=== PATIENT | female | born 1955 | race Caucasian/White ===

== ENCOUNTER → 2018-03-02 11:27 | Outpatient (CLI) | payer OTHER, SELFPAY ==
[2018-03-02 12:13] LABS: Add Manual Diff / Slide Review NO; Basophils Percent Auto 0.8 % (0-2); Eosinophils Percent Auto 5.6 % (2-4); Hematocrit 37.2 % (36-46); Hemoglobin 12.6 g/dL (12.0-16.0); Lymphocytes Percent Auto 28.8 % (25-40); Mean Corpuscular HGB Conc 33.9 % (30-36); Mean Corpuscular Hemoglobin 29.4 PG (26-34); Mean Corpuscular Volume 86.6 fL (80-100); Monocytes Percent Auto 9.6 % (3-14); Neutrophils Absolute Auto 2600 /uL (3000-5900); Neutrophils Percent Auto 55.2 % (50-75); Platelet Count 253 X10^3/uL (150-400); Red Cell Distribution Width 13.5 % (11.6-14.8); White Blood Cell Count 4.7 X10^3/uL (4.5-11.0)
[2018-03-02 12:29] LABS: Alanine Aminotransferase 53 IU/L (9-52); Albumin 4.5 g/dL (3.5-5.0); Albumin Globulin Ratio 1.9 (1.0-2.8); Alkaline Phosphatase 62 U/L (38-126); Aspartate Aminotransferase 44 IU/L (14-36); BUN Creatinine Ratio 14.3 (6-22); Bilirubin Total 0.4 mg/dL (0.2-1.3); Blood Urea Nitrogen 10 mg/dL (7-17); Calcium 9.6 mg/dL (8.4-10.2); Carbon Dioxide 25 mmol/L (22-32); Chloride 106 mmol/L (98-107); Cholesterol 204 mg/dL (140-199); Estimated Glomerular Filt Rate > 60.0 mL/min (>60); Globulin 2.4 g/dL (1.7-4.1); Glucose 93 mg/dL (80-110); HEMOLYSIS < 15 (0-50); Potassium 4.2 mmol/L (3.4-5.1); Sodium 142 mmol/L (137-145); Total Protein 6.9 g/dL (6.3-8.2); Triglycerides 70 mg/dL (35-150)
[2018-03-02 12:36] LABS: HDL Cholesterol 124 mg/dL (40-60); LDL Cholesterol Calculated 66 mg/dL (<100)
[2018-03-02 13:15] LABS: HIV 1 and 2 Antibody NEGATIVE (NEGATIVE); Hep C Virus Ab w/Reflex Quant NEGATIVE s/c (NEGATIVE)
[2018-03-02 16:35] LABS: Urine N gonorrhoeae NOT DETECTED
[2018-03-02 16:52] LABS: Urine Chlamydia NOT DETECTED
[2018-03-05 17:44] LABS: Fecal Immunochemical Test NOT DETECTED
== END ==
PROVIDERS: Visit Provider Family Medicine
DX: Z00.00 Encounter for general adult medical examination without abnormal findings (principal); Z20.2 Contact with and (suspected) exposure to infections with a predominantly sexual mode of transmission; Z12.11 Encounter for screening for malignant neoplasm of colon
CPT/HCPCS: 36415; 80053; 80061; 82274; 84443; 85025; 86703; 86803; 87491; 87591

== ENCOUNTER → 2018-03-27 08:37 | Outpatient (CLI) | payer OTHER, SELFPAY ==
[2018-03-27 11:14] LABS: Hemoglobin A1C% w Est Avg Glu 5.3 % (4.0-6.0)
[2018-03-27 11:39] LABS: Free T3, Triiodothyronine Free 3.98 pg/mL (2.77-5.27); Free T4, Direct Thyroxine 1.17 ng/dL (0.78-2.19)
[2018-03-27 11:41] LABS: Vitamin D 25 Hydroxy (D3) 67.6 ng/mL (30.0-100.0)
[2018-03-27 11:52] LABS: Thyroid Stimulating Hormone 0.66 uIU/mL (0.47-4.68)
[2018-03-27 12:42] LABS: C-Reactive Protein Quant 0.6 mg/dL (<1.0)
[2018-03-27 14:39] LABS: Vitamin B12 605 pg/mL (239-931)
[2018-03-28 16:30] LABS: Estradiol 101 pg/mL
[2018-03-28 17:38] LABS: Progesterone 4.3 ng/mL
[2018-03-28 17:52] LABS: Dehydroepiandrosterone Sulfate 34 mcg/dL (12-133)
[2018-03-29 12:22] LABS: Homocysteine 10.5 umol/L (< 10.4)
[2018-03-30 07:13] LABS: Z- Score (Female) -1.2 SD (-2.0 - +2.0)
[2018-04-01 08:12] LABS: Magnesium, RBC 5.5 mg/dL (4.0-6.4)
== END ==
PROVIDERS: PCP Family Medicine
DX: Z13.1 Encounter for screening for diabetes mellitus (principal)
CPT/HCPCS: 36415; 82306; 82542; 82607; 82627; 82670; 83036; 83090; 83735; 84144; 84305; 84402; 84403; 84439; 84443; 84481; 86140

== ENCOUNTER → 2018-05-01 14:14 | Outpatient (CLI) | payer OTHER, SELFPAY | PROVIDERS: PCP Family Medicine; Visit Provider Physician Assistant | DX: R39.89 Other symptoms and signs involving the genitourinary system (principal) | CPT/HCPCS: 87077; 87086; 87186 ==

== ENCOUNTER → 2018-05-09 11:11 | Outpatient (CLI) | payer OTHER, SELFPAY ==
--- NOTE | 2018-05-09 11:18 | DI.RAD.S_ITS ---
PROCEDURE: XR RIBS BI MIN 4V W CXR1V INDICATIONS: rib pain after fall TECHNIQUE: 2 views of the right ribs and 2 view of the left ribs were acquired, along with a single view chest. COMPARISON: None. FINDINGS: Surgical changes and devices: None. Bones and chest wall: No fractures or dislocations. No suspicious bony lesions. Overlying soft tissues appear unremarkable. Lungs and pleura: No pleural effusions or pneumothorax. Lungs appear clear. Mediastinum: Mediastinal contours appear normal. Heart size is normal. IMPRESSION: No displaced rib fractures. Dictated by: Lillian Roberts M.D. on 05/09/2018 at 17:22 Approved by: Lillian Roberts M.D. on 05/09/2018 at 17:24
== END ==
PROVIDERS: PCP Family Medicine; Visit Provider Family Medicine
DX: R07.81 Pleurodynia (principal)
CPT/HCPCS: 71111

== ENCOUNTER → 2018-07-03 11:09 | Outpatient (CLI) | payer OTHER, SELFPAY | PROVIDERS: PCP Family Medicine; Visit Provider Family Medicine | DX: R30.0 Dysuria (principal) | CPT/HCPCS: 87077; 87086; 87186 ==

== ENCOUNTER → 2018-09-06 10:40 | Outpatient (CLI) | payer OTHER, SELFPAY ==
[2018-09-06 12:11] LABS: C-Reactive Protein Quant < 0.5 mg/dL (<1.0)
[2018-09-06 12:26] LABS: Free T3, Triiodothyronine Free 3.58 pg/mL (2.77-5.27); Free T4, Direct Thyroxine 1.13 ng/dL (0.78-2.19); Progesterone, Total 3.03 ng/mL; Vitamin D 25 Hydroxy (D3) 51.4 ng/mL (30.0-100.0)
[2018-09-06 12:40] LABS: Thyroid Stimulating Hormone 0.65 uIU/mL (0.47-4.68)
[2018-09-06 12:42] LABS: Estradiol, Total 91.7 pg/mL
[2018-09-06 12:58] LABS: Vitamin B12 600 pg/mL (239-931)
[2018-09-08 13:35] LABS: Z- Score (Female) -1.3 SD (-2.0 - +2.0)
[2018-09-08 14:04] LABS: Dehydroepiandrosterone Sulfate 40 mcg/dL (12-133)
[2018-09-08 19:45] LABS: Homocysteine 6.1 umol/L (< 10.4)
[2018-09-09 13:37] LABS: Testosterone, Free 0.09 ng/dL
== END ==
PROVIDERS: PCP Family Medicine
DX: N95.9 Unspecified menopausal and perimenopausal disorder (principal); R53.83 Other fatigue; E55.9 Vitamin D deficiency, unspecified; Z13.220 Encounter for screening for lipoid disorders
CPT/HCPCS: 36415; 82306; 82607; 82627; 82670; 83090; 84144; 84305; 84402; 84439; 84443; 84481; 86140

== ENCOUNTER → 2019-02-08 17:42 | Outpatient (CLI) | payer OTHER, SELFPAY ==
[2019-02-08 18:06] LABS: Add Manual Diff / Slide Review NO; Basophils Absolute Auto 100 /uL (0-100); Eosinophils Absolute Auto 400 /uL (0-450); Hematocrit 37.7 % (36-46); Hemoglobin 12.8 g/dL (12.0-16.0); Lymphocytes Absolute Auto 2200 /uL (1100-4500); Lymphocytes Percent Auto 36.4 % (25-40); Mean Corpuscular HGB Conc 33.9 % (30-36); Mean Corpuscular Hemoglobin 29.4 PG (26-34); Mean Corpuscular Volume 86.8 fL (80-100); Monocytes Absolute Auto 600 /uL (0-900); Monocytes Percent Auto 9.7 % (3-14); Neutrophils Absolute Auto 2900 /uL (1500-7000); Neutrophils Percent Auto 46.9 % (50-75); Platelet Count 258 X10^3/uL (150-400); Red Blood Cell Count 4.34 X10^6/uL (4.0-5.2); Red Cell Distribution Width 13.3 % (11.6-14.8); White Blood Cell Count 6.1 X10^3/uL (4.5-11.0)
[2019-02-08 18:29] LABS: Appearance Urine UA CLEAR; Bilirubin Urine UA NEGATIVE (NEGATIVE); Color Urine UA YELLOW; Glucose Urine UA NEGATIVE (Negative); Ketones Urine UA NEGATIVE (NEGATIVE); Leukocyte Esterase Urine UA NEGATIVE (NEGATIVE); Nitrite Urine UA NEGATIVE (Negative); Occult Blood Urine UA TRACE-INTACT (Negative); Protein Urine UA NEGATIVE (Negative); Specific Gravity Urine UA <=1.005 (1.000-1.035); Urobilinogen Urine UA 0.2 E.U./dL (0.2)
[2019-02-08 18:31] LABS: Alanine Aminotransferase 22 IU/L (9-52); Albumin 4.5 g/dL (3.5-5.0); Albumin Globulin Ratio 1.6 (1.0-2.8); Alkaline Phosphatase 73 U/L (38-126); Aspartate Aminotransferase 29 IU/L (15-46); Bilirubin Total 0.4 mg/dL (0.2-1.3); Blood Urea Nitrogen 14 mg/dL (7-17); Calcium 10.3 mg/dL (8.4-10.2); Carbon Dioxide 28 mmol/L (22-32); Chloride 101 mmol/L (98-107); Cholesterol 245 mg/dL (140-199); Estimated Glomerular Filt Rate > 60.0 mL/min (>60); Globulin 2.9 g/dL (1.7-4.1); Glucose 89 mg/dL (80-110); HEMOLYSIS < 15 (0-50); Potassium 4.1 mmol/L (3.4-5.1); Sodium 137 mmol/L (137-145); Total Protein 7.4 g/dL (6.3-8.2); Triglycerides 114 mg/dL (35-150)
[2019-02-08 18:40] LABS: HDL Cholesterol 122 mg/dL (40-60); LDL Cholesterol Calculated 100 mg/dL (<100)
== END ==
PROVIDERS: PCP Family Medicine; Visit Provider Family Medicine
DX: Z00.00 Encounter for general adult medical examination without abnormal findings (principal); Z79.890 Hormone replacement therapy
CPT/HCPCS: 36415; 80053; 80061; 81003; 85025

== ENCOUNTER → 2019-04-25 15:05 | Outpatient (CLI) | payer OTHER, SELFPAY ==
--- NOTE | 2019-04-25 15:07 | DI.US.S_ITS ---
PROCEDURE: US PELVIC COMPLETE INDICATIONS: ANNUAL VISIT WITH ABN FINDINGS TECHNIQUE: Real-time scanning was performed of the pelvic organs, with image documentation. Additional endovaginal scanning was necessary due to incomplete visualization of the adnexal and endometrial structures by transabdominal scanning. COMPARISON: None. FINDINGS: Transabdominal scanning: Limited scanning through the kidneys shows no hydronephrosis. No pathologic free abdominal or pelvic fluid. Endovaginal scanning: Uterus: Uterus is normal in size at 8.7 x 4.9 x 5.5 cm. The endometrium is diffusely heterogeneous and measures 3-4 mm in combined thickness. Ovaries: Not seen sonographically IMPRESSION: Ovaries not well seen sonographically otherwise unremarkable examination Dictated by: Efraín Corbin M.D. on 04/25/2019 at 17:18 Approved by: Efraín Corbin M.D. on 04/25/2019 at 17:19
--- NOTE | 2019-04-25 15:21 | DI.MG.S_ITS ---
BILATERAL DIGITAL SCREENING MAMMOGRAM 3D/2D WITH CAD WITH AUGMENTATION: 04/25/2019 CLINICAL: Patient presents for routine screening. S/P bilateral augmentation. Comparison is made to exam dated: 02/26/2015 mammogram - [facility]. The tissue of both breasts is heterogeneously dense. This may lower the sensitivity of mammography. Current study was also evaluated with a Computer Aided Detection (CAD) system. Bilateral breast implants are intact. No significant masses, calcifications, or other findings are seen in either breast. There has been no significant interval change. IMPRESSION: NEGATIVE There is no mammographic evidence of malignancy. A 1 year screening mammogram is recommended. This exam was interpreted at Station ID: [id number]. NOTE: For mammograms, a report in lay terms will be sent to the patient. Approximately 15% of breast malignancies will not be visualized mammographically. In the management of a palpable breast mass, a negative mammogram must not discourage biopsy of a clinically suspicious lesion. Electronically Signed By: Rae strickland/cristina:04/25/2019 17:00:58 letter sent: Normal Exam ACR BI-RADS Category 1: Negative 3341F
== END ==
PROVIDERS: PCP Family Medicine; Visit Provider Family Medicine
DX: Z00.00 Encounter for general adult medical examination without abnormal findings (principal); Z12.31 Encounter for screening mammogram for malignant neoplasm of breast; Z79.890 Hormone replacement therapy; Z98.82 Breast implant status
CPT/HCPCS: 76830; 76856; 77063; 77067

== ENCOUNTER → 2020-08-07 17:35 | Outpatient (CLI) | payer OTHER, SELFPAY ==
[2020-08-07 18:13] LABS: Add Manual Diff / Slide Review NO; Basophils Absolute Auto 0 /uL (0-100); Basophils Percent Auto 0.8 % (0-2); Eosinophils Absolute Auto 400 /uL (0-450); Eosinophils Percent Auto 7.1 % (2-4); Hematocrit 37.6 % (36-46); Hemoglobin 12.7 g/dL (12.0-16.0); Lymphocytes Absolute Auto 2200 /uL (1100-4500); Lymphocytes Percent Auto 38.4 % (25-40); Mean Corpuscular HGB Conc 33.7 % (30-36); Mean Corpuscular Hemoglobin 29.4 PG (26-34); Mean Corpuscular Volume 87.3 fL (80-100); Monocytes Absolute Auto 500 /uL (0-900); Monocytes Percent Auto 9.4 % (3-14); Neutrophils Absolute Auto 2500 /uL (1500-7000); Neutrophils Percent Auto 44.3 % (50-75); Platelet Count 256 X10^3/uL (150-400); Red Blood Cell Count 4.31 X10^6/uL (4.0-5.2); Red Cell Distribution Width 13.5 % (11.6-14.8); White Blood Cell Count 5.6 X10^3/uL (4.5-11.0)
[2020-08-07 18:29] LABS: Alanine Aminotransferase 34 IU/L (<35); Albumin 4.6 g/dL (3.5-5.0); Albumin Globulin Ratio 1.5 (1.0-2.8); Alkaline Phosphatase 81 U/L (38-126); Aspartate Aminotransferase 32 IU/L (14-36); BUN Creatinine Ratio 22.8 (6-22); Bilirubin Total 0.3 mg/dL (0.2-1.3); Blood Urea Nitrogen 18 mg/dL (7-17); Calcium 10.2 mg/dL (8.4-10.2); Carbon Dioxide 25 mmol/L (22-32); Chloride 102 mmol/L (98-107); Cholesterol 247 mg/dL (140-199); Estimated Glomerular Filt Rate > 60.0 mL/min (>60); Glucose 92 mg/dL (80-110); HEMOLYSIS < 15 (0-50); Potassium 3.7 mmol/L (3.4-5.1); Sodium 136 mmol/L (137-145); Total Protein 7.6 g/dL (6.3-8.2); Triglycerides 150 mg/dL (35-150)
[2020-08-07 18:38] LABS: HDL Cholesterol 126 mg/dL (40-60); LDL Cholesterol Calculated 91 mg/dL (<100)
[2020-08-07 18:47] LABS: Progesterone, Total 1.47 ng/mL
[2020-08-07 18:55] LABS: Free T3, Triiodothyronine Free 2.62 pg/mL (2.77-5.27); Free T4, Direct Thyroxine 1.05 ng/dL (0.78-2.19); Vitamin D 25 Hydroxy (D3) 52.2 ng/mL (30.0-100.0)
[2020-08-07 19:09] LABS: Thyroid Stimulating Hormone 0.665 uIU/mL (0.47-4.68)
[2020-08-07 19:17] LABS: Vitamin B12 958 pg/mL (239-931)
[2020-08-08 15:51] LABS: Dehydroepiandrosterone Sulfate 37.3 ug/dL (20.4-186.6)
[2020-08-11 14:57] LABS: Estriol <0.1 ng/mL (.)
[2020-08-14 06:11] LABS: Percent Free Testosterone 1.28 % (0.50-2.80); Testosterone Total 70.5 ng/dL (7.0-40.0)
[2020-08-14 16:03] LABS: 1,25-Dihydroxy, Vitamin D-2 <10 pg/mL (.)
== END ==
PROVIDERS: PCP Registered Nurse; Referring Provider Nurse Practitioner Family; Visit Provider Nurse Practitioner Family
DX: Z13.89 Encounter for screening for other disorder (principal); R53.83 Other fatigue; Z79.899 Other long term (current) drug therapy; N95.1 Menopausal and female climacteric states; E03.9 Hypothyroidism, unspecified; E78.5 Hyperlipidemia, unspecified
CPT/HCPCS: 36415; 80053; 80061; 82306; 82607; 82627; 82652; 82670; 82677; 84144; 84270; 84402; 84403; 84439; 84443; 84481; 84482; 85025

== ENCOUNTER → 2020-10-10 10:59 | Outpatient (CLI) | payer OTHER, SELFPAY ==
--- NOTE | 2020-10-10 11:01 | DI.RAD.S_ITS ---
PROCEDURE: XR HAND RT MIN 3V INDICATIONS: bilateral hand pain TECHNIQUE: 3 views of the hand(s) acquired. COMPARISON: None. FINDINGS: Bones: No fractures or dislocations. Carpal bones are normally aligned. No suspicious bony lesions. Moderate 1st CMC joint, 2nd DIP joint and 3rd DIP joint osteoarthritis. Joint space narrowing, marginal osteophytosis and central erosions noted in the 5th DIP joint compatible with erosive osteoarthritis. Soft tissues: No suspicious soft tissue calcifications. IMPRESSION: 1. 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 Dictated by: Khadijah Jordan MD, PhD on 10/10/2020 at 14:50 Approved by: Khadijah Jordan MD, PhD on 10/10/2020 at 14:54
--- NOTE | 2020-10-10 11:01 | DI.RAD.S_ITS ---
PROCEDURE: XR HAND LT MIN 3V INDICATIONS: bilateral hand pain TECHNIQUE: The views of the hand(s) acquired. COMPARISON: None. FINDINGS: Bones: No fractures or dislocations. Carpal bones are normally aligned. No suspicious bony lesions. Interphalangeal, 1st CMC and triscaphe joint degeneration, with [id number] appearance at the triscaphe joint. Scattered degenerative subchondral sclerosis and spurring. A lucent lesion projects in the distal radius near the distal radioulnar joint. Marginal lucencies also project at the PIP joint and DIP joint of the middle finger. Soft tissues: No suspicious soft tissue calcifications. IMPRESSION: Severe left hand osteoarthritis as above. Several osseous lucencies including at the distal radius and interphalangeal joints raising the possibility of erosions although technically nonspecific Dictated by: Efraín Corbin M.D. on 10/10/2020 at 13:14 Approved by: Efraín Corbin M.D. on 10/10/2020 at 13:16
[2020-10-10 12:06] LABS: Add Manual Diff / Slide Review NO; Basophils Absolute Auto 0 /uL (0-100); Basophils Percent Auto 0.6 % (0-2); Eosinophils Absolute Auto 400 /uL (0-450); Hemoglobin 12.8 g/dL (12.0-16.0); Lymphocytes Absolute Auto 1800 /uL (1100-4500); Lymphocytes Percent Auto 40.2 % (25-40); Mean Corpuscular HGB Conc 33.8 % (30-36); Mean Corpuscular Hemoglobin 29.5 PG (26-34); Mean Corpuscular Volume 87.4 fL (80-100); Monocytes Absolute Auto 500 /uL (0-900); Monocytes Percent Auto 11.5 % (3-14); Neutrophils Absolute Auto 1800 /uL (1500-7000); Neutrophils Percent Auto 38.7 % (50-75); Platelet Count 264 X10^3/uL (150-400); Red Blood Cell Count 4.35 X10^6/uL (4.0-5.2); Red Cell Distribution Width 13.4 % (11.6-14.8); White Blood Cell Count 4.5 X10^3/uL (4.5-11.0)
[2020-10-10 12:27] LABS: Erythrocyte Sedimentation Rate 11 MM/HR (0-20)
[2020-10-10 12:29] LABS: Alanine Aminotransferase 132 IU/L (<35); Albumin 4.2 g/dL (3.5-5.0); Albumin Globulin Ratio 1.4 (1.0-2.8); Alkaline Phosphatase 99 U/L (38-126); Aspartate Aminotransferase 165 IU/L (14-36); BUN Creatinine Ratio 26.2 (6-22); Bilirubin Total 0.3 mg/dL (0.2-1.3); Blood Urea Nitrogen 16 mg/dL (7-17); C-Reactive Protein Quant 0.7 mg/dL (<1.0); Calcium 9.9 mg/dL (8.4-10.2); Carbon Dioxide 26 mmol/L (22-32); Chloride 105 mmol/L (98-107); Estimated Glomerular Filt Rate > 60.0 mL/min (>60); Glucose 93 mg/dL (80-110); HEMOLYSIS 19 (0-50); Potassium 4.6 mmol/L (3.4-5.1); Sodium 137 mmol/L (137-145); Total Protein 7.2 g/dL (6.3-8.2)
[2020-10-10 12:39] LABS: Rheumatoid Factor < 8.6 IU/mL (<12.0)
[2020-10-13 15:35] LABS: ANA Screen, IFA Negative (.)
[2020-10-13 22:07] LABS: CCP Antibodies IgG/IgA 5 units (0-19)
== END ==
PROVIDERS: PCP Family Medicine; Referring Provider Family Medicine; Visit Provider Family Medicine
DX: M79.641 Pain in right hand (principal); M79.642 Pain in left hand; R22.30 Localized swelling, mass and lump, unspecified upper limb
CPT/HCPCS: 36415; 73130; 80053; 85025; 85651; 86038; 86140; 86200; 86430

== ENCOUNTER → 2021-06-04 17:35 | Outpatient (CLI) | payer OTHER, SELFPAY ==
[2021-06-04 19:53] LABS: Progesterone, Total 2.25 ng/mL
[2021-06-04 19:55] LABS: Vitamin D 25 Hydroxy (D3) 34.5 ng/mL (30.0-100.0)
[2021-06-04 19:56] LABS: Free T4, Direct Thyroxine 1.17 ng/dL (0.78-2.19)
[2021-06-04 20:09] LABS: Estradiol, Total 121.1 pg/mL; Thyroid Stimulating Hormone 0.764 uIU/mL (0.47-4.68)
[2021-06-07 12:14] LABS: Estriol <0.1 ng/mL (.)
[2021-06-09 06:05] LABS: Dehydroepiandrosterone Sulfate 45.5 ug/dL (20.4-186.6)
[2021-06-12 00:05] LABS: Percent Free Testosterone 1.09 % (0.50-2.80); Testosterone Free 0.27 ng/dL (0.10-0.85); Testosterone Total 24.7 ng/dL (7.0-40.0)
[2021-06-12 16:13] LABS: Triiodothyronine T3 Reverse 18.1 ng/dL (9.2-24.1)
== END ==
PROVIDERS: PCP Family Medicine; Referring Provider Nurse Practitioner Family; Visit Provider Nurse Practitioner Family
DX: Z13.89 Encounter for screening for other disorder (principal); R53.83 Other fatigue; Z79.899 Other long term (current) drug therapy; N95.1 Menopausal and female climacteric states
CPT/HCPCS: 36415; 82306; 82627; 82670; 82677; 84144; 84270; 84402; 84403; 84439; 84443; 84481; 84482

== ENCOUNTER → 2022-09-07 17:35 | Outpatient (CLI) | payer OTHER, SELFPAY ==
[2022-09-07 18:17] LABS: Add Manual Diff / Slide Review NO; Basophils Absolute Auto 100 /uL (0-100); Eosinophils Absolute Auto 400 /uL (0-450); Eosinophils Percent Auto 6.7 % (2-4); Hematocrit 37.8 % (36-46); Lymphocytes Absolute Auto 2000 /uL (1100-4500); Lymphocytes Percent Auto 39.1 % (25-40); Mean Corpuscular HGB Conc 34.3 % (30-36); Mean Corpuscular Hemoglobin 29.4 PG (26-34); Mean Corpuscular Volume 85.6 fL (80-100); Monocytes Absolute Auto 600 /uL (0-900); Monocytes Percent Auto 10.9 % (3-14); Neutrophils Absolute Auto 2200 /uL (1500-7000); Neutrophils Percent Auto 42.3 % (50-75); Platelet Count 290 X10^3/uL (150-400); Red Blood Cell Count 4.42 X10^6/uL (4.0-5.2); Red Cell Distribution Width 13.5 % (11.6-14.8); White Blood Cell Count 5.2 X10^3/uL (4.5-11.0)
[2022-09-07 18:43] LABS: Vitamin D 25 Hydroxy (D3) 39.4 ng/mL (30.0-100.0)
[2022-09-07 18:44] LABS: Free T3, Triiodothyronine Free 3.97 pg/mL (2.77-5.27); Free T4, Direct Thyroxine 1.01 ng/dL (0.78-2.19)
[2022-09-07 18:45] LABS: Alanine Aminotransferase 34 IU/L (<35); Albumin 4.6 g/dL (3.5-5.0); Albumin Globulin Ratio 1.4 (1.0-2.8); Alkaline Phosphatase 85 U/L (38-126); Aspartate Aminotransferase 28 IU/L (14-36); Bilirubin Total 0.4 mg/dL (0.2-1.3); Blood Urea Nitrogen 17 mg/dL (7-17); Calcium 9.9 mg/dL (8.4-10.2); Carbon Dioxide 27 mmol/L (22-32); Chloride 100 mmol/L (98-107); Cholesterol 259 mg/dL (140-199); Estimated Glomerular Filt Rate > 60 mL/min (>60); Globulin 3.3 g/dL (1.7-4.1); Glucose 93 mg/dL (80-110); HEMOLYSIS < 15 (0-50); Potassium 3.9 mmol/L (3.4-5.1); Sodium 135 mmol/L (137-145); Total Protein 7.9 g/dL (6.3-8.2); Triglycerides 132 mg/dL (35-150)
[2022-09-07 18:48] LABS: HDL Cholesterol 123 mg/dL (40-60); LDL Cholesterol Calculated 110 mg/dL (<100)
[2022-09-07 18:59] LABS: Testosterone 45.1 ng/dL (5.71-77.0)
[2022-09-07 19:00] LABS: Estradiol, Total 136.6 pg/mL
[2022-09-09 00:06] LABS: HBsAg Screen Negative (Negative); Hepatitis A Antibody IgM Negative (Negative); Hepatitis B Core Antibody IgM Negative (Negative); Hepatitis C Antibody Non Reactive (Non Reactive)
== END ==
PROVIDERS: PCP Family Medicine; Referring Provider Naturopath; Visit Provider Naturopath
DX: Z51.81 Encounter for therapeutic drug level monitoring (principal); E03.9 Hypothyroidism, unspecified; Z00.00 Encounter for general adult medical examination without abnormal findings; N95.1 Menopausal and female climacteric states; E78.5 Hyperlipidemia, unspecified; Z79.890 Hormone replacement therapy; R74.8 Abnormal levels of other serum enzymes; E55.9 Vitamin D deficiency, unspecified
CPT/HCPCS: 80053; 80061; 80074; 82306; 82670; 84403; 84439; 84443; 84481; 85025

== ENCOUNTER → 2022-09-11 09:35 | Outpatient (CLI) | payer OTHER, SELFPAY ==
[2022-09-14 17:59] LABS: Fecal Immunochemical Test Negative (Negative)
== END ==
PROVIDERS: PCP Family Medicine; Referring Provider Family Medicine; Visit Provider Family Medicine
DX: Z12.11 Encounter for screening for malignant neoplasm of colon (principal)
CPT/HCPCS: 82274

== ENCOUNTER → 2022-11-06 09:26 | Outpatient (CLI) | payer OTHER, SELFPAY ==
[2022-11-06 11:12] LABS: Thyroid Stimulating Hormone 0.723 uIU/mL (0.47-4.68)
== END ==
PROVIDERS: PCP Family Medicine; Referring Provider Naturopath; Visit Provider Naturopath
DX: E03.9 Hypothyroidism, unspecified (principal)
CPT/HCPCS: 36415; 84443

== ENCOUNTER → 2023-02-02 17:36 | Outpatient (CLI) | payer OTHER, SELFPAY ==
[2023-02-02 19:23] LABS: Estradiol, Total 38.8 pg/mL
[2023-02-05 18:41] LABS: Thyroid Stimulating Hormone 0.647 uIU/mL (0.47-4.68)
== END ==
PROVIDERS: PCP Family Medicine; Referring Provider Naturopath; Visit Provider Naturopath
DX: E03.9 Hypothyroidism, unspecified (principal); N95.1 Menopausal and female climacteric states
CPT/HCPCS: 36415; 82670; 84443

== ENCOUNTER → 2023-07-23 07:46 | Outpatient (CLI) | payer OTHER, SELFPAY ==
--- NOTE | 2023-07-23 | DI.MG.S_ITS ---
BILATERAL DIGITAL SCREENING MAMMOGRAM 3D/2D WITH CAD WITH AUGMENTATION: 07/23/2023 CLINICAL: Routine screening. Comparison is made to exams dated: 04/25/2019 mammogram - [facility] and 02/26/2015 mammogram - [facility]. Both breasts are heterogeneously dense, which may obscure small masses (category c / 51-75% glandular tissue). Current study was also evaluated with a Computer Aided Detection (CAD) system. Bilateral breast implants are stable. No significant masses, calcifications, or other findings are seen in either breast. There has been no significant interval change. IMPRESSION: NEGATIVE There is no mammographic evidence of malignancy. A 1 year screening mammogram is recommended. Based on the Tyrer Cuzick model (a risk assessment model) the patient's lifetime risk is 6.5% and her 10 year risk is 3.8%. According to the ACR, ACS, and NCCN guidelines, an annual breast MRI exam along with mammogram is recommended if the patient's lifetime risk is 20% or greater. This exam was interpreted at Station ID: [id number]. NOTE: For mammograms, a report in lay terms will be sent to the patient. Approximately 15% of breast malignancies will not be visualized mammographically. In the management of a palpable breast mass, a negative mammogram must not discourage biopsy of a clinically suspicious lesion. Electronically Signed By: Rae strickland/cristina:07/25/2023 10:07:11 letter sent: Normal Exam ACR BI-RADS Category 1: Negative 3341F
== END ==
PROVIDERS: PCP Family Medicine; Referring Provider Family Medicine; Visit Provider Family Medicine
DX: Z12.31 Encounter for screening mammogram for malignant neoplasm of breast (principal); R92.333 Mammographic heterogeneous density, bilateral breasts
CPT/HCPCS: 77063; 77067

== ENCOUNTER → 2023-11-15 07:19 | Outpatient (CLI) | payer OTHER, SELFPAY ==
[2023-11-15 08:09] LABS: Add Manual Diff / Slide Review NO; Basophils Absolute Auto 0 /uL (0-100); Basophils Percent Auto 0.8 % (0-2); Eosinophils Absolute Auto 500 /uL (0-450); Eosinophils Percent Auto 9.6 % (2-4); Hematocrit 37.9 % (36-46); Lymphocytes Absolute Auto 1800 /uL (1100-4500); Lymphocytes Percent Auto 34.9 % (25-40); Mean Corpuscular HGB Conc 34.2 % (30-36); Mean Corpuscular Hemoglobin 29.8 PG (26-34); Mean Corpuscular Volume 87.2 fL (80-100); Monocytes Absolute Auto 600 /uL (0-900); Monocytes Percent Auto 11.8 % (3-14); Neutrophils Absolute Auto 2100 /uL (1500-7000); Neutrophils Percent Auto 42.9 % (50-75); Platelet Count 259 X10^3/uL (150-400); Red Blood Cell Count 4.35 X10^6/uL (4.0-5.2); Red Cell Distribution Width 13.1 % (11.6-14.8)
[2023-11-15 08:48] LABS: Free T3, Triiodothyronine Free 3.61 pg/mL (2.77-5.27); Free T4, Direct Thyroxine 1.03 ng/dL (0.78-2.19)
[2023-11-15 09:02] LABS: TSH w/ Reflex to FT4 1.08 uIU/mL (0.47-4.68)
[2023-11-15 09:27] LABS: Alanine Aminotransferase 20 IU/L (<35); Albumin 4.2 g/dL (3.5-5.0); Albumin Globulin Ratio 1.6 (1.0-2.8); Alkaline Phosphatase 75 U/L (38-126); Aspartate Aminotransferase 23 IU/L (14-36); BUN Creatinine Ratio 15.7 (6-22); Bilirubin Total 0.8 mg/dL (0.2-1.3); Blood Urea Nitrogen 11 mg/dL (7-17); Calcium 9.3 mg/dL (8.4-10.2); Carbon Dioxide 22 mmol/L (22-32); Chloride 107 mmol/L (98-107); Cholesterol 232 mg/dL (140-199); Estimated Glomerular Filt Rate > 60 mL/min (>60); Globulin 2.6 g/dL (1.7-4.1); Glucose 93 mg/dL (80-110); HEMOLYSIS < 15 (0-50); Potassium 4.3 mmol/L (3.4-5.1); Sodium 137 mmol/L (137-145); Total Protein 6.8 g/dL (6.3-8.2); Triglycerides 71 mg/dL (35-150)
[2023-11-15 09:37] LABS: HDL Cholesterol 119 mg/dL (40-60); LDL Cholesterol Calculated 99 mg/dL (<100)
[2023-11-15 09:59] LABS: Testosterone 49.4 ng/dL (5.71-77.0)
[2023-11-15 10:02] LABS: Estradiol, Total 159.9 pg/mL
[2023-11-15 10:34] LABS: Creatinine Urine Random 194.29 mg/dL
[2023-11-15 10:42] LABS: Microalbumin Urine Random 1.4 mg/dL (0-1.6)
[2023-11-16 05:13] LABS: Apolipoprotein B 87 mg/dL (<90)
[2023-11-16 13:36] LABS: Fecal Immunochemical Test Negative (Negative)
== END ==
PROVIDERS: PCP Family Medicine; Referring Provider Naturopath; Visit Provider Naturopath
DX: Z00.00 Encounter for general adult medical examination without abnormal findings (principal); E03.9 Hypothyroidism, unspecified; N95.1 Menopausal and female climacteric states; Z12.11 Encounter for screening for malignant neoplasm of colon; E78.5 Hyperlipidemia, unspecified
CPT/HCPCS: 36415; 80053; 80061; 82043; 82172; 82274; 82570; 82670; 84403; 84439; 84443; 84481; 85025

== ENCOUNTER → 2024-08-10 10:03 | Outpatient (CLI) | payer MEDICARE, SELFPAY ==
[2024-08-10 11:17] LABS: Add Manual Diff / Slide Review NO; Basophils Absolute Auto 0 /uL (0-100); Basophils Percent Auto 0.6 % (0-2); Eosinophils Absolute Auto 400 /uL (0-450); Eosinophils Percent Auto 7.6 % (2-4); Hematocrit 37.9 % (36-46); Lymphocytes Absolute Auto 2000 /uL (1100-4500); Mean Corpuscular HGB Conc 34.3 % (30-36); Mean Corpuscular Hemoglobin 29.6 PG (26-34); Mean Corpuscular Volume 86.4 fL (80-100); Monocytes Absolute Auto 500 /uL (0-900); Monocytes Percent Auto 10.6 % (3-14); Neutrophils Absolute Auto 2000 /uL (1500-7000); Neutrophils Percent Auto 41.2 % (50-75); Platelet Count 280 X10^3/uL (150-400); Red Blood Cell Count 4.39 X10^6/uL (4.0-5.2); Red Cell Distribution Width 13.8 % (11.6-14.8); White Blood Cell Count 4.9 X10^3/uL (4.5-11.0)
[2024-08-10 11:37] LABS: Creatinine Urine Random 180.71 mg/dL
[2024-08-10 11:41] LABS: Alanine Aminotransferase 25 IU/L (<35); Albumin 4.7 g/dL (3.5-5.0); Albumin Globulin Ratio 1.7 (1.0-2.8); Alkaline Phosphatase 81 U/L (38-126); Aspartate Aminotransferase 29 IU/L (14-36); BUN Creatinine Ratio 19.4 (6-22); Bilirubin Total 0.9 mg/dL (0.2-1.3); Blood Urea Nitrogen 14 mg/dL (7-17); Calcium 9.9 mg/dL (8.4-10.2); Carbon Dioxide 23 mmol/L (22-32); Chloride 107 mmol/L (98-107); Cholesterol 250 mg/dL (140-199); Estimated Glomerular Filt Rate > 60 mL/min (>60); Globulin 2.7 g/dL (1.7-4.1); Glucose 92 mg/dL (70-99); HEMOLYSIS < 15 (0-50); Potassium 4.8 mmol/L (3.4-5.1); Sodium 138 mmol/L (137-145); Total Protein 7.4 g/dL (6.3-8.2); Triglycerides 63 mg/dL (35-150)
[2024-08-10 11:44] LABS: Free T3, Triiodothyronine Free 5.15 pg/mL (2.77-5.27); Free T4, Direct Thyroxine 1.25 ng/dL (0.78-2.19)
[2024-08-10 11:45] LABS: Microalbumin Urine Random 4.7 mg/dL (0-1.6)
[2024-08-10 11:49] LABS: HDL Cholesterol 126 mg/dL (40-60); LDL Cholesterol Calculated 111 mg/dL (<100)
[2024-08-10 11:57] LABS: TSH w/ Reflex to FT4 0.62 uIU/mL (0.47-4.68)
== END ==
PROVIDERS: PCP Family Medicine; Referring Provider Family Medicine; Visit Provider Family Medicine
DX: E03.9 Hypothyroidism, unspecified (principal); Z00.00 Encounter for general adult medical examination without abnormal findings; E78.5 Hyperlipidemia, unspecified; L71.9 Rosacea, unspecified
CPT/HCPCS: 36415; 80053; 80061; 82043; 82570; 84439; 84443; 84481; 85025

== ENCOUNTER → 2024-10-11 07:14 | Outpatient (CLI) | payer MEDICARE, SELFPAY ==
[2024-10-11 08:46] LABS: Estradiol, Total 167.9 pg/mL
== END ==
LOC: LAB 07:18
PROVIDERS: PCP Family Medicine; Referring Provider Naturopath; Visit Provider Naturopath
DX: N95.1 Menopausal and female climacteric states (principal)
CPT/HCPCS: 36415; 82670